=== PATIENT | male | born 1955 | race Caucasian/White ===

== ENCOUNTER 2017-07-17 09:42 | Emergency (ER) | payer OTHER, SELFPAY ==
[2017-07-17 09:43] VITALS: BP 156/88; PULSE 85; RESP 22; TEMP 36.6; O2SAT 99; BMI 28.8
[2017-07-17 09:51] VITALS: BP 141/83; PULSE 82; RESP 16; O2SAT 98
--- NOTE | 2017-07-17 10:17 | EKG12_ITS ---
Test Reason : SOB Blood Pressure : / mmHG Vent. Rate : 076 BPM Atrial Rate : 076 BPM P-R Int : 164 ms QRS Dur : 080 ms QT Int : 384 ms P-R-T Axes : 067 044 071 degrees QTc Int : 432 ms Normal sinus rhythm Septal infarct , age undetermined Abnormal ECG Confirmed by GRAYSON GONG ([id number]), news editor PETRA COLEY ([id number]) on 07/19/2017 2:59:33 PM Referred By: ALE Confirmed By:GRAYSON GONG
[2017-07-17] MEDS: Ipratropium/Albuterol Sulfate 3 ML AMPUL.NEB INHALATION (10:30)
[2017-07-17] MEDS: Albuterol 2.5 MG/3 ML VIAL.NEB. INHALATION ×2 (10:38→10:43)
[2017-07-17 10:39] VITALS: PULSE 81; RESP 14; O2SAT 96
[2017-07-17 10:48] LABS: Absolute Lymphocyte Count 2.23 X10^3/ul (0.83-4.51); Absolute Neutrophil Count 6.1 X10^3/uL (2.0-7.7); Basophil# 0.08 X10^3/uL; Basophil% 0.9 % (0-1); Eosinophil# 0.17 X10^3/uL; Eosinophils% 1.9 % (0-5); Hematocrit 49.4 % (40-54); Lymphocyte # 2.23 X10^3/ul (4.0); Lymphocyte % 24.3 % (19-41); Mean Corp Hgb Conc 34.4 g/gl (32-36); Mean Corpuscular Hgb 31.4 pg (27.0-32.0); Mean Corpuscular Volume 91.1 fL (80-94); Monocyte# 0.61 X10^3/uL; Monocyte% 6.7 % (0-10); Neutrophil # 6.06 X10^3/uL (2.7-7.7); Platelet Count 221 K/mm3 (150-450); RBC Distribution Width CV 13.7 % (11.6-14.6); RBC Distribution Width SD 45.1 fl (35.1-43.9); Red Blood Count 5.42 M/mm3 (4.6-6.2); White Blood Count 9.2 K/mm3 (4.4-11.0)
[2017-07-17 10:50] LABS: Anion Gap 4 (5-15); BUN 19 mg/dL (7-18); BUN/Creat Ratio 20.5 RATIO (10-20); Calcium,Total 8.8 mg/dL (8.5-10.1); Chloride 106 mmol/L (98-107); Creatinine, Serum 0.92 mg/dL (0.70-1.30); EST Glomerular Filtration Rate 89 mL/min (>60); Est Glom Filt Rate - Afr Amer 107 mL/min (>60); Estimated Creatinine Clearance 85.39 ml/min; Glucose 106 mg/dL (74-106); Potassium 4.3 mmol/L (3.5-5.1); Sodium Level 141 mmol/L (136-145)
[2017-07-17 10:51] LABS: POSITIVE COUNT NO; POSITIVE DIFFERENTIAL NO; POSITIVE MORPHOLOGY NO
--- NOTE | 2017-07-17 11:00 | RAD_ITS ---
STUDY: X-RAY CHEST REASON FOR EXAM: Male, 62 years old. Cough. TECHNIQUE: PA and lateral views of the chest. COMPARISON: Comparison is made with prior study dated June 07, 2017. FINDINGS: Hyperinflation. Decreased bronchovascular markings in the lower lobes suggestive of emphysematous changes. Stable mild increased markings in the left infrahilar region suggestive of possible scarring. Normal size heart. Normal mediastinum and babs. Normal visualized pulmonary arteries. Normal visualized aortic arch and descending thoracic aorta. Normal visualized thoracic spine. Normal visualized ribs, clavicles, and shoulders. There is no demonstrated abnormality of the visualized soft tissue structures of the upper abdomen. RAD/Chest PA and Lateral IMPRESSION: Hyperinflation. No acute abnormality is seen. Electronically Signed: Gualberto Barajas MD at 11:26 EST Tel [phone], Service support ,
[2017-07-17] MEDS: MethylPREDNISolone 125 MG/2 ML Vial IV (11:33)
--- NOTE | 2017-07-17 11:33 | ED.VISSUMM ---
- ER Visit Summary Date of Service: 07/17/17 Chief Complaint: Shortness of breath History of Present Illness: The patient is a 62 M who presents with shortness of breath for the past month. He was admitted for influenza and COPD. He was discharged on a steroid taper. He states he transiently seemed to improve but worsened again. He reports productive cough. He has had some congestion and rhinorrhea as well as chills and sweats. No documented fevers. He has had some diarrhea. No nausea or vomiting. Physical Examination: Afebrile vitals are stable Moist mucous membranes Heart regular rate and rhythm Patient has inspiratory and expiratory wheezing no retractions able to speak in full sentences no respiratory distress Abdomen soft Test Results: EKG shows normal sinus rhythm at a rate of 76. CBC BMP unremarkable. Chest x-ray shows hyperinflation but no acute process. Emergency Department Course and Treatment: IV Solu-Medrol was ordered however the patient refused to leave his IV and after blood draw. Therefore this was not given. Patient was given albuterol Atrovent aerosols. Symptoms consistent with COPD exacerbation. He was given prescriptions for a prednisone taper and doxycycline. He was advised to follow-up with his primary care physician. He was counseled on smoking cessation. Treatment Plan: [] Disposition: Discharge Impression: COPD exacerbation This note was generated with [employer] dictation software. It may contain incorrect words, spelling, and punctuation that were not noted in review of the chart prior to signing ED Disposition - Plan for ED Patient: Chief Complaint: Shortness of Breath Referrals: Angela Brown MD [Primary Care Provider] -
--- NOTE | 2017-07-17 11:36 | ED.DEP ---
ED Disposition - Plan for ED Patient: Chief Complaint: Shortness of Breath Instructions: ED COPD Flare Prescriptions: Prednisone 10 mg PO UD #33 tab Doxycycline Hyclate 1 tab PO BID #20 cap Referrals: Angela Brown MD [Primary Care Provider] -
[2017-07-17 11:49] VITALS: BP 157/72; PULSE 81; RESP 15; O2SAT 97
== END 2017-07-17 11:51 | disposition home or self-care (01) ==
LOC: ED 10:18
PROVIDERS: Emergency Provider Emergency Medicine; Family Provider Family Medicine; PCP Family Medicine
DX: J44.1 Chronic obstructive pulmonary disease with (acute) exacerbation (principal); Z72.0 Tobacco use
CPT/HCPCS: 71046; 80048; 85025; 93005; 94640; 99284

== ENCOUNTER 2017-08-06 07:18 | Observation (INO) | payer OTHER, SELFPAY ==
[2017-08-06] VITALS (14 sets, daily range): BP systolic 126–151; BP diastolic 60–77; PULSE 74–97; RESP 18–28; TEMP 36.7–37; O2SAT 94–98; BMI 28.8; BMI 28.5
--- NOTE | 2017-08-06 07:39 | RAD_ITS ---
STUDY: X-RAY CHEST REASON FOR EXAM: Male, 62 years old. One-month history of cough and shortness of breath. TECHNIQUE: Single AP portable view of the chest. COMPARISON: Comparison is made with prior study dated July 17, 2017. FINDINGS: EKG electrodes are seen. Hyperinflation. Stable mild increased markings in the left infrahilar region suggestive of a possible scarring. There is no demonstrated pleural abnormality. Normal size heart. Normal mediastinum and babs. There is prominence of the pulmonary hilar arteries without peripheral pulmonary vascular congestion, suggesting pulmonary hypertension. Normal visualized aortic arch and descending thoracic aorta. There are diffuse degenerative changes of the visualized thoracic spine. Normal visualized ribs, clavicles, and shoulders. There is no demonstrated abnormality of the visualized soft tissue structures of the upper abdomen. RAD/Chest 1 View (Portable) IMPRESSION: Hyperinflation. Stable examination. Electronically Signed: Gualberto Barajas MD at 8:18 EDT Tel [phone], Service support ,
--- NOTE | 2017-08-06 07:39 | EKG12_ITS ---
Test Reason : Blood Pressure : / mmHG Vent. Rate : 076 BPM Atrial Rate : 076 BPM P-R Int : 180 ms QRS Dur : 086 ms QT Int : 390 ms P-R-T Axes : 078 056 065 degrees QTc Int : 438 ms Normal sinus rhythm Normal ECG Confirmed by KAREN CARTER, GUNNER ([id number]), writer editor PETRA COLEY ([id number]) on 08/08/2017 3:29:59 PM Referred By: ELISEO Confirmed By:GUNNER JONES MD
[2017-08-06] MEDS: Ipratropium/Albuterol Sulfate 3 ML AMPUL.NEB INHALATION ×4 (07:51→19:27)
[2017-08-06] MEDS: Albuterol 2.5 MG/3 ML VIAL.NEB. INHALATION (07:52)
[2017-08-06 07:56] LABS: Absolute Lymphocyte Count 2.24 X10^3/ul (0.83-4.51); Absolute Neutrophil Count 5.1 X10^3/uL (2.0-7.7); Basophil# 0.03 X10^3/uL; Basophil% 0.4 % (0-1); Eosinophil# 0.28 X10^3/uL; Eosinophils% 3.4 % (0-5); Hematocrit 46.5 % (40-54); Lymphocyte # 2.24 X10^3/ul (4.0); Lymphocyte % 26.9 % (19-41); Mean Corp Hgb Conc 34.4 g/gl (32-36); Mean Corpuscular Hgb 31.7 pg (27.0-32.0); Mean Corpuscular Volume 92.1 fL (80-94); Mean Platelet Vol. 10.2 fl (6.2-12.0); Monocyte# 0.72 X10^3/uL; Monocyte% 8.6 % (0-10); Neutrophil # 5.06 X10^3/uL (2.7-7.7); Neutrophil % 60.6 % (47-70); Platelet Count 183 K/mm3 (150-450); RBC Distribution Width CV 13.7 % (11.6-14.6); RBC Distribution Width SD 45.1 fl (35.1-43.9); Red Blood Count 5.05 M/mm3 (4.6-6.2); White Blood Count 8.3 K/mm3 (4.4-11.0)
[2017-08-06 07:57] LABS: POSITIVE COUNT NO; POSITIVE DIFFERENTIAL NO; POSITIVE MORPHOLOGY NO
[2017-08-06 08:03] LABS: D-Dimer Quantitative (DVT/PE) < 0.27 FEU/ug/m (0.27-0.49)
[2017-08-06] MEDS: 0.9% Normal Saline 1,000 ML 150 ML IV (08:08)
[2017-08-06] MEDS: MethylPREDNISolone 125 MG/2 ML Vial IV (08:08)
[2017-08-06 08:10] LABS: Anion Gap 7 (5-15); BUN 19 mg/dL (7-18); Calcium,Total 8.2 mg/dL (8.5-10.1); Chloride 111 mmol/L (98-107); Creatinine, Serum 0.76 mg/dL (0.70-1.30); EST Glomerular Filtration Rate 111 mL/min (>60); Est Glom Filt Rate - Afr Amer 134 mL/min (>60); Estimated Creatinine Clearance 103.36 ml/min; Glucose 107 mg/dL (74-106); Potassium 4.2 mmol/L (3.5-5.1); Sodium Level 143 mmol/L (136-145)
--- NOTE | 2017-08-06 08:49 | ED.DCSUM_ITS ---
- ER Visit Summary Date of Service: 08/06/17 Chief Complaint: [Shortness of breath] History of Present Illness: The patient is a 62 M [presents to the emergency department with shortness of breath for over a month. Patient states that he was admitted little over a month ago for COPD exacerbation and diagnosis of influenza. Patient got better initially and then 2 weeks ago had a repeat visit to the emergency department and diagnosed with a COPD exacerbation once again. Patient was started on doxycycline, prednisone, and inhaler. Patient once again states that he felt better for about a week and then started having increased shortness of breath with activity. Patient continues to wheeze. He denies any chest pain. He denies any recent travel or surgery. Patient denies any fever.] Physical Examination: [HEENT-PERRLA, EOMI. Cranial nerves II through XII grossly intact. TMs clear. Mucous membranes moist. No adenopathy. Cardiovascular-regular rate and rhythm without murmur or ectopy Lungs-patient is tachypneic, decreased breath sounds bilaterally, expiratory wheezes bilaterally. No accessory muscle use or retractions. Abdomen-normoactive bowel sounds, soft, nontender, no rebound or rigidity, no peritoneal signs. Extremities-intact ?4, normal range of motion, normal pulses, atraumatic] Test Results: [EKG obtained on arrival shows sinus rhythm with a rate of 76 bpm. CBC with differential was normal. Chemistries were normal. Troponin was less than 0.02. EKG on arrival showed sinus rhythm with a ventricular rate of 76 bpm with no acute ST segment changes. Chest x-ray showed hyperinflation otherwise nothing acute.] Emergency Department Course and Treatment: [Patient received DuoNeb aerosol and albuterol aerosol. Patient continues to wheeze and feel dyspneic. Patient received Solu-Medrol 125 mill grams IV.] Treatment Plan: [Admit for further aerosol treatments and steroids.] Disposition: [Admit] Impression: [COPD exacerbation] This note was generated with [employer] dictation software. It may contain incorrect words, spelling, and punctuation that were not noted in review of the chart prior to signing ED Disposition - Plan for ED Patient: Chief Complaint: Shortness of Breath Referrals: Angela Brown MD [Primary Care Provider] -
--- NOTE | 2017-08-06 09:17 | ED.RN ---
Addendum entered by Jmai Chaves 08/06/17 09:22: This RN and Kimberlee, RN only nurses on unit at this time- assisting patient that needed x2 assist with positioning and care- could not see ER report since not at fax machine. Notified ER nurse that we are back in a room and would call when we were back at nurses' station- same completed. Original Note: called floor to see if report was recieved. was told I'll call you.
--- NOTE | 2017-08-06 10:36 | PCM.HP.STD ---
Problem List (1) COPD exacerbation Status: Acute (2) Influenza A Status: Resolved (3) Nicotine abuse Status: Chronic History of Present Illness Date of Admission: 08/06/17 Chief Complaint: Shortness of breath The patient is a 62 year old M with a past medical history of COPD and tobacco dependence who presented to the emergency department at [facility] on 08/06/2017 complaining of shortness of breath. He has an occasional cough. He denies fever, chills, nausea, vomiting, sore throat, myalgias or arthralgias. He continues to smoke 1 pack of cigarettes per day. He is using an albuterol rescue inhaler 3 times daily. 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 He used to smoke 4 packs of cigarettes per day. He has never had pulmonary function test or seen a termite control representative. Vital signs at presentation to the emergency room are temperature 98.1, pulse rate 82, blood pressure 144/77, respiratory rate 28 and he was 98% saturated on room air. He was given a DuoNeb aerosol and the respiratory rate was then 18 and he was 95% on room air. Blood work shows a normal white blood cell count of 8.3 with a normal differential. D-dimer was less than 0.27. BUN was mildly increased at 19 with a creatinine of 0.76. It was less than 0.02. Chest x-ray showed hyperinflation with no infiltrates. The ER physician recommended admission for acute exacerbation of COPD. He is being admitted to the hospital for observation with a diagnosis of COPD exacerbation. Past Medical History Past Medical History (Chronic Problems): Chronic Problems Nicotine abuse (Chronic) Allergies Sulfa (Sulfonamide Antibiotics) Allergy (Verified 08/06/17 07:22) Unknown Home Medications: Ambulatory Orders Medication Instructions Recorded Ascorbic Acid [Vitamin C] 1 tab PO DAILY 11/20/16 Naproxen Sodium [Aleve] 220 mg PO BID 11/20/16 Albuterol IH (ProAir) [Proair Hfa] 1 puff INHALATION Q6H PRN PRN #1 06/08/17 inhaler Surgical History: - - Right rotator cuff repair ?2 Psychiatric History: No pertinent psych hx Smoking Status: Heavy Smoker (>10/day) Tobacco Use: Cigarettes Alcohol: None - Used to be an alcoholic Drugs: None - *Family History Paternal History Items: Diabetes, - - He states his father had a viral cardiomyopathy Maternal History Items: Diabetes Review of Systems Constitutional: Denies: Chills, Fever, Weight Change Eyes: Denies: Blurred vision, Redness HEENT: Denies: Head Aches, Sinus Congestion, Sinus Drainage Cardiovascular: Denies: Chest Pain, Edema, Light Headedness, Palpitations Respiratory: Reports: Cough - He states smoking a cigarette makes him cough and then he can get the stuff up and so he rationalizes that the Albuterol does not help up but smoking a cigarette is therawputic, Shortness of breath upon exertion, Wheezing, - - He gets SOB when he lies down....has never had a sleep study. Denies: Hemoptysis Gastrointestinal: Denies: Abdominal Pain, Nausea, Vomiting Genitourinary: Denies: Dysuria Musculoskeletal: Denies: Joint Pain, Joint swelling, Muscle pain Skin: Denies: Jaundice, Rash, Wounds Neurological: Denies: Numbness, Tingling, Focal weakness Psychiatric: Denies: Anxiety, Depression, Homicidal Ideations, Suicidal Ideations Endocrine: Denies: Change in Body Habitus Hematologic/ Lymphatic: Denies: Hx of blood clot VTE Information - Inpt Only VTE Present on Admission: No VTE Mechan Device Prophylaxis: SCD's, Knee High YASMANI Hose VTE Pharm Prophylaxis ordered?: Yes - Physical Exam General: Alert, Oriented x3, Non-Cooperative - refused TEDS and Lovenox for DVT prophylaxis, - - When I entered his room he was eating and watching TV. He was not tachypneic, had no conversational dyspnea and malinda accessory muscle use. When I told him he was admitted for observation because he really did not meet any criteria for admission he began to breath fast and hard....until I asked him a question and once again he had no conversational dypnea. HEENT: Atraumatic, PERRLA, EOMI, Normocephalic Oral: Moist Mucosa, - - poor dental care Neck: Supple, No Nodes, Trachea Midline Lungs: No rhonchi, No rales, Diminished, Wheezes - end expiratory, - - fair air exchange with no conversational dyspnea and no tachypnea or accessory muscle use. He does have increased AP diameter of the chest Cardiovascular: Regular rate, Regular Rhythm, Normal S1, Normal S2, No murmurs, No Ectopic Activity, No Gallop Abdomen: Bowel Sounds Present, Soft, Non Tender, Non-Distended, - - ate 100% of his breakfast Extremities: No clubbing, No cyanosis, No edema Skin: No rashes, No breakdown Musculoskeletal: No Muscle Wasting Neurological: Cranial nerves II-XII grossly intact, Neuro grossly intact Psych/Mental Status: Agitated - he got agitated when I told him he would need to stop smoking because he has COPD.....he told me that he would have to start drinking again. He did stop for a period of 1 year with the assistance of Wellbutrin but he will not take this because it made him gain weight. He will not take a Nicoderm patch because he is too hairy. The gum did not work for him. Vital Signs Temp Pulse Resp BP Pulse Ox 98.1 F 74 20 H 137/72 H 94 08/06/17 09:51 08/06/17 09:51 08/06/17 09:51 08/06/17 09:51 08/06/17 09:51 Oxygen Delivery Method Room Air Weight: 193 lb 1.999 oz Body Mass Index (BMI) 28.5 Assessment/Plan Impressions 1. acute exacerbation COPD Around the clock aerosol treatments and Q 2H ALbuterol aerosols for wheezing/SOB High dose IV steroids x 4 doses and then Prednisone 40 mg. Mucinex Incentive spirometry PEP therapy DVT prophylaxis Ambulatory pulse ox prior to DC Consult Dr. Elliott from pulmonary - will need outpatient pulmonary function tests -and more than a rescue inhaler for treatment of suspected COPD with increased AP diameter of chest, hyperinflation and flattening of diaphragms on CXR 2. nicotine dependence 3. remote hx of Alcoholism Code Visit OBSV E&M: 80070 Initial observation care L3
--- NOTE | 2017-08-06 10:59 | NURSING ---
Addendum entered by Jami Chaves 08/07/17 09:58: Dr Joshi spoke with patient yesterday and then he agreed to take lovenox injection- same completed. Original Note: Pt refusing YASMANI hose and lovenox- Dr. Joshi notified.
[2017-08-06 11:56] LABS: Allen Test POS; Base Excess 3 mmol/L (-2 to +2); Bicarbonate 26.9 mmol/L (22-26); Blood Gas Specimen Type ART; O2 Delivery Device Room Air; PO2 71 mmHG (75-100); SITE R Radial; SO2 95 % (95-99); Time Given 1153; Total Carbon Dioxide 28 mmol/L; pCO2 36.5 mmHg (35-45); pH 7.48 (7.35-7.45)
--- NOTE | 2017-08-06 13:02 | PCM.CONS.GEN ---
Problem List (1) Suspected chronic obstructive pulmonary disease based on initial evaluation Status: Acute (2) Nicotine abuse Status: Chronic Reason for Consult Date of Consultation: 08/06/17 Reason for Consultation: dyspnea on exertion History of Present Illness: The patient is a 62 year old M with past medical history of alcoholism, tobacco abuse, and presumed COPD who presented to the ER on 08/06/17 with complaints of increased dyspnea on exertion and ineffectiveness of his albuterol inhaler. Patient does continue to smoke 1 pack per day and claims smoking a cigarette makes his shortness of breath improve. Has been using his albuterol inhaler 3 times a day. Patient was admitted 06/07/17 with presumed COPD exacerbation and influenza and discharged on a steroid taper, Tamiflu, and an albuterol inhaler. He then returned to the ER 07/17/17 and was again diagnosed with COPD exacerbation and sent home with a prednisone taper and 10 day course of doxycycline. He completed the antibiotics and taper and felt better until approximately 1 week later, at which time his symptoms returned. Chest x-ray on arrival showed hyperinflation, no acute abnormality. It demonstrated previously seen increased markings in the left and infrahilar region suggestive of possible scarring. There is also prominence of the pulmonary babs arteries without peripheral pulmonary vascular congestion, suggestive of pulmonary hypertension. Lab work revealed a normal CBC. BMP with a chloride of 111 and BUN of 19, creatinine 0.76. ABG was performed on room air and showed a pH of 7.48, PCO2 36.5 and PO2 71. Bicarb was 26.9. The patient did not require any oxygen supplementation and has remained on room air. He does complain of a coarse cough with occasional clear to yellow sputum production. He has some chest tightness and wheezing. He denies any chest pain, dizziness, or syncope. He denies any recent fevers or chills, nausea, vomiting, or diarrhea. Pulmonary medicine was consulted for continued follow-up on an outpatient basis. 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 He denies any exposure to TB or asbestos. He has lived in [place] his entire life and lives with his . His does report the patient snores and has periods of apnea. He has never been tested for any sleep disorders or had any pulmonary function testing. Patient states he felt relatively well prior to when he had influenza at the beginning of May. He had never previously been in the hospital for breathing issues. He has never been on any other inhalers other than the albuterol that was prescribed at that time. He reports he used to smoke 4 PPD for approximately 8 years, then decreased his smoking to a pack a day for the past 3 years. He did quit a couple of times in between. He has tried nicotine patches but after reading the box, states he was not able to use them anymore since he had too much hair on his body. He is not up-to-date on his colonoscopies. He denies any family or personal history of cancer. He used to drink very heavily but quit several years ago. He still has an occasional beer. Past Medical History Past Medical History (Chronic Problems): Chronic Problems Nicotine abuse (Chronic) Allergies Sulfa (Sulfonamide Antibiotics) Allergy (Verified 08/06/17 07:22) Unknown Home Medications: Ambulatory Orders Medication Instructions Recorded Ascorbic Acid [Vitamin C] 1 tab PO DAILY 11/20/16 Naproxen Sodium [Aleve] 220 mg PO BID 11/20/16 Albuterol IH (ProAir) [Proair Hfa] 1 puff INHALATION Q6H PRN PRN #1 06/08/17 inhaler Surgical History: - - Right rotator cuff repair ?2 Psychiatric History: No pertinent psych hx Lives: Spouse/ Significant Other Smoking Status: Heavy Smoker (>10/day) Tobacco Use: Cigarettes Alcohol: Occasional Drugs: None - *Family History Paternal History Items: Diabetes, - - He states his father had a viral cardiomyopathy Maternal History Items: Diabetes Review of Systems Constitutional: Denies: Anorexia, Chills, Fever, Night Sweats, Malaise, Weakness, Weight Change, Fatigue Eyes: Denies: Blurred vision, Vision Change HEENT: Denies: Difficulty Swallowing, Nasal bleeding, Nasal Congestion, Post Nasal Drip, Sore Throat Cardiovascular: Reports: Chest Tightness. Denies: Chest Pain, Edema, Light Headedness, Orthopnea, Palpitations, Paroxysmal Noc. Dyspnea, Syncope Respiratory: Reports: Cough, Shortness of breath at rest, Shortness of breath upon exertion, Sputum production, Wheezing. Denies: Hemoptysis Gastrointestinal: Denies: Abdominal Pain, Constipation, Diarrhea, Dyspepsia, Hematemesis, Hematochezia, Nausea, Melena, Vomiting Genitourinary: Reports: Nocturia. Denies: Dysuria, Frequency, Hematuria, Retention Musculoskeletal: Reports: Shoulder Pain - right, chronic. Denies: Leg Pain Skin: Denies: Dryness, Rash, Wounds Neurological: Denies: Balance problems, Confusion, Difficulty swallowing, Focal weakness, Headaches, Numbness, Tingling, Tremor, Seizures Psychiatric: Denies: Anxiety, Depression, Suicidal Ideations Endocrine: Denies: Change in Body Habitus, Polydipsia, Polyuria Hematologic/ Lymphatic: Reports: Easy Bruising. Denies: Adenopathy, Anemia, Easy Bleeding, Hx of blood clot Patient Problems: Active and Suspected Problems Suspected chronic obstructive pulmonary disease based on initial evaluation (Acute) Subjective: The patient was seen and examined. His is at the bedside. He denies any current shortness of breath. He does have a productive cough of clear to yellow sputum, no hemoptysis. Complains of chronic right shoulder pain. Patient is maintaining saturations on room air. Objective: Clinical Impression(s) from Imaging Studies Chest X-Ray 08/06/17 07:39 IMPRESSION: Hyperinflation. Stable examination. Electronically Signed: Gualberto Barajas MD at 8:18 EDT Tel [phone], Service support , - Physical Exam General: Alert, Oriented x3, Cooperative, No apparent distress, Well developed, Well nourished, - - No conversational dyspnea HEENT: Atraumatic, Normocephalic Oral: Moist Mucosa, No Gingival or Mucosal Lesions/ Ulcerations Neck: Supple, No JVD, No Nodes, Trachea Midline Lungs: No rales, Diminished, - - Rhonchi and expiratory wheeze throughout. No dullness to percussion, no accessory muscle use, no tachypnea Cardiovascular: Regular rate, Regular Rhythm, Normal S1, Normal S2, No murmurs, PMI Normal, No rub noted, No Gallop Abdomen: Bowel Sounds Present, Soft, Non Tender, Non-Distended Extremities: No clubbing, No cyanosis, No edema, Capillary Refill Less than 3 Seconds Skin: No rashes, No breakdown Musculoskeletal: No Tenderness to Palpation of Joints or Extremities Lymphatic: No Cervical, Supraclavicular, or Inguinal Adenopathy Neurological: Cranial nerves II-XII grossly intact, Neuro grossly intact, Motor Exam 5/5 strength throughout Psych/Mental Status: Alert and oriented to time, place, person, mood and affect Vital Signs Temp Pulse Resp BP Pulse Ox 98.1 F 76 21 H 137/72 H 95 08/06/17 09:51 08/06/17 11:31 08/06/17 11:31 08/06/17 09:51 08/06/17 11:31 Oxygen Delivery Method Room Air Weight: 193 lb 1.999 oz Body Mass Index (BMI) 28.5 Intake and Output for Last 24 Hours 08/04/17 08/05/17 08/06/17 22:59 23:59 23:59 Intake Total 1101 / 1101 Balance 1101 / 1101 Laboratory Tests Past 24 Hrs 08/06/17 11:50 Specimen Type ART Sample Site R Radial pH 7.48 H Bicarbonate Actual 26.9 H POC Total CO2 28 Base Excess 3 H O2 Saturation 95 ABG pCO2 36.5 ABG pO2 71 L Patricio Test POS O2 Delivery Device Room Air Blood Gas Notified Whom HOSP Blood Gas Notified Time 1153 Assessment/Plan Active and Suspected Problems Suspected chronic obstructive pulmonary disease based on initial evaluation (Acute) RECOMMENDATIONS 1. Wean oxygen supplementation to keep saturations greater than 89% 2. Encourage incentive spirometer and Acapella 3. Increase activity as tolerated 4. Continue aerosols 5. Continue IV steroids ?4 doses, transition to oral after with taper at discharge 6. Send sputum for culture 7. Ambulatory pulse ox prior to discharge 8. Patient can follow-up in the pulmonary clinic in 2 weeks after discharge at which time pulmonary testing can be arranged IMPRESSIONS 1. Presumed COPD exacerbation Recent influenza A in May, treated with prednisone taper, Tamiflu, albuterol inhaler. Has been using albuterol 3 times a day since. Was in the emergency room on July 17 with increased shortness of breath. Discharged with prednisone taper and doxycycline ?10 days. He felt better and then after 1 week became more short of breath again. Patient has been on room air and saturating greater than 90%. His ABG showed mild hypoxia with a PO2 of 71. PH 7.48 and bicarbonate 26.9. pCO2 was normal at 36.5. Suspect patient has COPD that is not adequately managed on current regimen. He has a significant smoking history. His lungs are very rhonchorous. He has some sputum production, sample was sent for culture. Continue steroids for now, no indication for the need of antibiotics. Encourage incentive spirometer/Acapella and increase activity as tolerated. Pulmonary function tests would be beneficial for quantification and clarification of his suspected lung disease. Patient can be offered follow-up appointment in the pulmonary clinic within 2 weeks of discharge with SENIOR INFORMATION SECURITY ANALYST. Patient should also have an ambulatory pulse ox prior to discharge. 2. Suspected sleep apnea Patient's reports loud snoring, witnessed apnea. Patient denies any hypertension. Does feel tired during the day at times, nothing significant. Suspect he does have sleep apnea, explained sleep study to patient and his . If patient would like to proceed with testing, this can be arranged as an outpatient in the pulmonary clinic or by his PCP. 3. Tobacco abuse Patient has [id number] history of smoking. He was advised to quit. He is currently wearing a nicotine patch. States he was unable to wear the patch as an outpatient secondary to his hair, was refusing to shave. Again, patient strongly encouraged to quit smoking. This note was generated with [employer] dictation software. It may contain incorrect words, spelling, and punctuation that were not noted in checking the note before signing.
--- NOTE | 2017-08-06 13:12 | CON.PCM_ITS ---
Problem List (1) Suspected chronic obstructive pulmonary disease based on initial evaluation Status: Acute (2) Nicotine abuse Status: Chronic Reason for Consult Date of Consultation: 08/06/17 Reason for Consultation: dyspnea on exertion History of Present Illness: The patient is a 62 year old M with past medical history of alcoholism, tobacco abuse, and presumed COPD who presented to the ER on 08/06/17 with complaints of increased dyspnea on exertion and ineffectiveness of his albuterol inhaler. Patient does continue to smoke 1 pack per day and claims smoking a cigarette makes his shortness of breath improve. Has been using his albuterol inhaler 3 times a day. Patient was admitted 06/07/17 with presumed COPD exacerbation and influenza and discharged on a steroid taper, Tamiflu, and an albuterol inhaler. He then returned to the ER 07/17/17 and was again diagnosed with COPD exacerbation and sent home with a prednisone taper and 10 day course of doxycycline. He completed the antibiotics and taper and felt better until approximately 1 week later, at which time his symptoms returned. Chest x-ray on arrival showed hyperinflation, no acute abnormality. It demonstrated previously seen increased markings in the left and infrahilar region suggestive of possible scarring. There is also prominence of the pulmonary babs arteries without peripheral pulmonary vascular congestion, suggestive of pulmonary hypertension. Lab work revealed a normal CBC. BMP with a chloride of 111 and BUN of 19, creatinine 0.76. ABG was performed on room air and showed a pH of 7.48, PCO2 36.5 and PO2 71. Bicarb was 26.9. The patient did not require any oxygen supplementation and has remained on room air. He does complain of a coarse cough with occasional clear to yellow sputum production. He has some chest tightness and wheezing. He denies any chest pain , dizziness, or syncope. He denies any recent fevers or chills, nausea, vomiting, or diarrhea. Pulmonary medicine was consulted for continued follow- up on an outpatient basis. 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 He denies any exposure to TB or asbestos. He has lived in [place] his entire life and lives with his . His does report the patient snores and has periods of apnea. He has never been tested for any sleep disorders or had any pulmonary function testing. Patient states he felt relatively well prior to when he had influenza at the beginning of May. He had never previously been in the hospital for breathing issues. He has never been on any other inhalers other than the albuterol that was prescribed at that time. He reports he used to smoke 4 PPD for approximately 8 years, then decreased his smoking to a pack a day for the past 3 years. He did quit a couple of times in between. He has tried nicotine patches but after reading the box, states he was not able to use them anymore since he had too much hair on his body. He is not up-to-date on his colonoscopies. He denies any family or personal history of cancer. He used to drink very heavily but quit several years ago. He still has an occasional beer. Past Medical History Past Medical History (Chronic Problems): Chronic Problems Nicotine abuse (Chronic) Allergies Sulfa (Sulfonamide Antibiotics) Allergy (Verified 08/06/17 07:22) Unknown Home Medications: Ambulatory Orders Medication Instructions Recorded Ascorbic Acid [Vitamin C] 1 tab PO DAILY 11/20/16 Naproxen Sodium [Aleve] 220 mg PO BID 11/20/16 Albuterol IH (ProAir) [Proair Hfa] 1 puff INHALATION Q6H PRN PRN #1 06/08/17 inhaler Surgical History: - - Right rotator cuff repair ?2 Psychiatric History: No pertinent psych hx Lives: Spouse/ Significant Other Smoking Status: Heavy Smoker (>10/day) Tobacco Use: Cigarettes Alcohol: Occasional Drugs: None - *Family History Paternal History Items: Diabetes, - - He states his father had a viral cardiomyopathy Maternal History Items: Diabetes Review of Systems Constitutional: Denies: Anorexia, Chills, Fever, Night Sweats, Malaise, Weakness , Weight Change, Fatigue Eyes: Denies: Blurred vision, Vision Change HEENT: Denies: Difficulty Swallowing, Nasal bleeding, Nasal Congestion, Post Nasal Drip, Sore Throat Cardiovascular: Reports: Chest Tightness. Denies: Chest Pain, Edema, Light Headedness, Orthopnea, Palpitations, Paroxysmal Noc. Dyspnea, Syncope Respiratory: Reports: Cough, Shortness of breath at rest, Shortness of breath upon exertion, Sputum production, Wheezing. Denies: Hemoptysis Gastrointestinal: Denies: Abdominal Pain, Constipation, Diarrhea, Dyspepsia, Hematemesis, Hematochezia, Nausea, Melena, Vomiting Genitourinary: Reports: Nocturia. Denies: Dysuria, Frequency, Hematuria, Retention Musculoskeletal: Reports: Shoulder Pain - right, chronic. Denies: Leg Pain Skin: Denies: Dryness, Rash, Wounds Neurological: Denies: Balance problems, Confusion, Difficulty swallowing, Focal weakness, Headaches, Numbness, Tingling, Tremor, Seizures Psychiatric: Denies: Anxiety, Depression, Suicidal Ideations Endocrine: Denies: Change in Body Habitus, Polydipsia, Polyuria Hematologic/ Lymphatic: Reports: Easy Bruising. Denies: Adenopathy, Anemia, Easy Bleeding, Hx of blood clot Patient Problems: Active and Suspected Problems Suspected chronic obstructive pulmonary disease based on initial evaluation ( Acute) Subjective: The patient was seen and examined. His is at the bedside. He denies any current shortness of breath. He does have a productive cough of clear to yellow sputum, no hemoptysis. Complains of chronic right shoulder pain. Patient is maintaining saturations on room air. Objective: Clinical Impression(s) from Imaging Studies Chest X-Ray 08/06/17 07:39 IMPRESSION: Hyperinflation. Stable examination. Electronically Signed: Gualberto Barajas MD at 8:18 EDT Tel [phone], Service support , - Physical Exam General: Alert, Oriented x3, Cooperative, No apparent distress, Well developed, Well nourished, - - No conversational dyspnea HEENT: Atraumatic, Normocephalic Oral: Moist Mucosa, No Gingival or Mucosal Lesions/ Ulcerations Neck: Supple, No JVD, No Nodes, Trachea Midline Lungs: No rales, Diminished, - - Rhonchi and expiratory wheeze throughout. No dullness to percussion, no accessory muscle use, no tachypnea Cardiovascular: Regular rate, Regular Rhythm, Normal S1, Normal S2, No murmurs, PMI Normal, No rub noted, No Gallop Abdomen: Bowel Sounds Present, Soft, Non Tender, Non-Distended Extremities: No clubbing, No cyanosis, No edema, Capillary Refill Less than 3 Seconds Skin: No rashes, No breakdown Musculoskeletal: No Tenderness to Palpation of Joints or Extremities Lymphatic: No Cervical, Supraclavicular, or Inguinal Adenopathy Neurological: Cranial nerves II-XII grossly intact, Neuro grossly intact, Motor Exam 5/5 strength throughout Psych/Mental Status: Alert and oriented to time, place, person, mood and affect Vital Signs Temp Pulse Resp BP Pulse Ox 98.1 F 76 21 H 137/72 H 95 08/06/17 09:51 08/06/17 11:31 08/06/17 11:31 08/06/17 09:51 08/06/17 11:31 Oxygen Delivery Method Room Air Weight: 193 lb 1.999 oz Body Mass Index (BMI) 28.5 Intake and Output for Last 24 Hours 08/04/17 08/05/17 08/06/17 22:59 23:59 23:59 Intake Total 1101 / 1101 Balance 1101 / 1101 Laboratory Tests Past 24 Hrs 08/06/17 11:50 Specimen Type ART Sample Site R Radial pH 7.48 H Bicarbonate Actual 26.9 H POC Total CO2 28 Base Excess 3 H O2 Saturation 95 ABG pCO2 36.5 ABG pO2 71 L Patricio Test POS O2 Delivery Device Room Air Blood Gas Notified Whom HOSP Blood Gas Notified Time 1153 Assessment/Plan Active and Suspected Problems Suspected chronic obstructive pulmonary disease based on initial evaluation ( Acute) RECOMMENDATIONS 1. Wean oxygen supplementation to keep saturations greater than 89% 2. Encourage incentive spirometer and Acapella 3. Increase activity as tolerated 4. Continue aerosols 5. Continue IV steroids ?4 doses, transition to oral after with taper at discharge 6. Send sputum for culture 7. Ambulatory pulse ox prior to discharge 8. Patient can follow-up in the pulmonary clinic in 2 weeks after discharge at which time pulmonary testing can be arranged IMPRESSIONS 1. Presumed COPD exacerbation Recent influenza A in May, treated with prednisone taper, Tamiflu, albuterol inhaler. Has been using albuterol 3 times a day since. Was in the emergency room on July 17 with increased shortness of breath. Discharged with prednisone taper and doxycycline ?10 days. He felt better and then after 1 week became more short of breath again. Patient has been on room air and saturating greater than 90%. His ABG showed mild hypoxia with a PO2 of 71. PH 7.48 and bicarbonate 26.9. pCO2 was normal at 36.5. Suspect patient has COPD that is not adequately managed on current regimen. He has a significant smoking history. His lungs are very rhonchorous. He has some sputum production , sample was sent for culture. Continue steroids for now, no indication for the need of antibiotics. Encourage incentive spirometer/Acapella and increase activity as tolerated. Pulmonary function tests would be beneficial for quantification and clarification of his suspected lung disease. Patient can be offered follow-up appointment in the pulmonary clinic within 2 weeks of discharge with FURNACE ATTENDANT. Patient should also have an ambulatory pulse ox prior to discharge. 2. Suspected sleep apnea Patient's reports loud snoring, witnessed apnea. Patient denies any hypertension. Does feel tired during the day at times, nothing significant. Suspect he does have sleep apnea, explained sleep study to patient and his . If patient would like to proceed with testing, this can be arranged as an outpatient in the pulmonary clinic or by his PCP. 3. Tobacco abuse Patient has [id number] history of smoking. He was advised to quit. He is currently wearing a nicotine patch. States he was unable to wear the patch as an outpatient secondary to his hair, was refusing to shave. Again, patient strongly encouraged to quit smoking. This note was generated with [employer] dictation software. It may contain incorrect words, spelling, and punctuation that were not noted in checking the note before signing.
[2017-08-06] MEDS: 0.9% NaCl Peripheral Flush Adult/Peds IV (15:09)
[2017-08-06] MEDS: Enoxaparin 40 MG/0.4 ML Syringe SC (15:09)
[2017-08-06] MEDS: Naproxen 250 MG Tablet PO (22:11)
[2017-08-07] VITALS (11 sets, daily range): BP systolic 128–164; BP diastolic 66–75; PULSE 92–110; RESP 16–20; TEMP 36.6–36.8; O2SAT 94–99
[2017-08-07] MEDS: Ipratropium/Albuterol Sulfate 3 ML AMPUL.NEB INHALATION ×4 (00:16→11:21)
[2017-08-07] MEDS: 0.9% NaCl Peripheral Flush Adult/Peds IV ×2 (05:41→12:59)
--- NOTE | 2017-08-07 08:30 | PCM.PROGNOTE ---
Patient Problems: Active and Suspected Problems Suspected chronic obstructive pulmonary disease based on initial evaluation (Acute) Subjective: The patient was seen and examined. Reports his breathing is overall better. Ambulatory pulse ox this morning showed desaturations down to 94%, no qualification for oxygen supplementation at home. Still has a cough with intermittently productive, clear sputum. Intermittent dyspnea on exertion, improved. Chest tightness has improved as well. Objective: Recent lab work and culture data reviewed. Sputum cultures pending. - Physical Exam General: Alert, Oriented x3, Cooperative, No apparent distress, Well developed, Well nourished HEENT: Atraumatic, Normocephalic Oral: Moist Mucosa, No Gingival or Mucosal Lesions/ Ulcerations Neck: Supple, No JVD, No Nodes, Trachea Midline Lungs: Diminished, - - Expiratory wheeze, no rhonchi or rales Cardiovascular: Regular rate, Regular Rhythm, Normal S1, Normal S2, No murmurs, No rub noted, No Gallop Abdomen: Bowel Sounds Present, Soft, Non Tender, Non-Distended Extremities: No clubbing, No cyanosis, No edema Skin: No rashes, No breakdown Musculoskeletal: Tenderness - R shoulder, chronic Lymphatic: No Cervical, Supraclavicular, or Inguinal Adenopathy Neurological: Cranial nerves II-XII grossly intact, Neuro grossly intact, Motor Exam 5/5 strength throughout Psych/Mental Status: Alert and oriented to time, place, person, mood and affect Vital Signs Temp Pulse Resp BP Pulse Ox 98.2 F 92 20 H 128/71 H 94 08/07/17 04:15 08/07/17 07:23 08/07/17 07:23 08/07/17 04:15 08/07/17 08:22 Oxygen Flow Rate (L/min) [ 0 AMBULATING on Room Air] Oxygen Flow Rate (L/min) [At 0 REST on Room Air] Oxygen Delivery Method Room Air Weight: 193 lb 1.999 oz Body Mass Index (BMI) 28.5 Intake and Output for Last 24 Hours 08/05/17 08/06/17 08/07/17 23:59 23:59 23:59 Intake Total 1701 / 1701 1248 / 1248 Balance 1701 / 1701 1248 / 1248 Laboratory Tests Past 24 Hrs 08/06/17 11:50 Specimen Type ART Sample Site R Radial pH 7.48 H Bicarbonate Actual 26.9 H POC Total CO2 28 Base Excess 3 H O2 Saturation 95 ABG pCO2 36.5 ABG pO2 71 L Patricio Test POS O2 Delivery Device Room Air Blood Gas Notified Whom [facility] Blood Gas Notified Time 1153 Assessment/Plan Active and Suspected Problems Suspected chronic obstructive pulmonary disease based on initial evaluation (Acute) RECOMMENDATIONS 1. Wean oxygen supplementation to keep saturations greater than 89% 2. Encourage incentive spirometer and Acapella 3. Increase activity as tolerated 4. Continue aerosols 5. Transition to oral steroids with RX for 40mg x5 days on discharge 6. Await sputum culture 7. Patient can follow-up in the pulmonary clinic in 2 weeks after discharge at which time pulmonary testing can be arranged (PFTs, PSG, 6-min walk) 8. Okay to discharge from pulmonary standpoint IMPRESSIONS 1. Presumed COPD Patient has been on room air and saturating greater than 90%. His ABG showed mild hypoxia with a PO2 of 71. PH 7.48 and bicarbonate 26.9. pCO2 was normal at 36.5. Suspect patient has COPD that is not adequately managed on current regimen of albuterol MDI TID. He has a significant smoking history. Pulmonary function tests would be beneficial for quantification and clarification of his suspected lung disease. Patient can be offered follow-up appointment in the pulmonary clinic within 2 weeks of discharge with CLINICAL PROGRAM CONSULTANT. Sputum pending. Encourage incentive spirometer/Acapella and increase activity as tolerated. Transition to oral steroids with RX for 40 mg x5 days at discharge. Ambulatory pulse oximetry did not indicate the need for supplemental oxygen on discharge. Patient would likely benefit from the addition of Anoro at discharge, will check with for insurance coverage. 2. Suspected sleep apnea Patient's reports loud snoring, witnessed apnea. Patient denies any hypertension. Does feel tired during the day at times, nothing significant. Suspect he does have sleep apnea, explained sleep study to patient and his . If patient would like to proceed with testing, this can be arranged as an outpatient in the pulmonary clinic or by his PCP. 3. Tobacco abuse Patient has [id number] history of smoking. He was advised to quit. He is currently wearing a nicotine patch. States he was unable to wear the patch as an outpatient secondary to his hair, was refusing to shave. Again, patient strongly encouraged to quit smoking. This note was generated with [employer] software. It may contain incorrect words, spelling, and punctuation that were not noted in checking the note before signing.
--- NOTE | 2017-08-07 08:36 | PN_ITS ---
Patient Problems: Active and Suspected Problems Suspected chronic obstructive pulmonary disease based on initial evaluation ( Acute) Subjective: The patient was seen and examined. Reports his breathing is overall better. Ambulatory pulse ox this morning showed desaturations down to 94%, no qualification for oxygen supplementation at home. Still has a cough with intermittently productive, clear sputum. Intermittent dyspnea on exertion, improved. Chest tightness has improved as well. Objective: Recent lab work and culture data reviewed. Sputum cultures pending. - Physical Exam General: Alert, Oriented x3, Cooperative, No apparent distress, Well developed, Well nourished HEENT: Atraumatic, Normocephalic Oral: Moist Mucosa, No Gingival or Mucosal Lesions/ Ulcerations Neck: Supple, No JVD, No Nodes, Trachea Midline Lungs: Diminished, - - Expiratory wheeze, no rhonchi or rales Cardiovascular: Regular rate, Regular Rhythm, Normal S1, Normal S2, No murmurs, No rub noted, No Gallop Abdomen: Bowel Sounds Present, Soft, Non Tender, Non-Distended Extremities: No clubbing, No cyanosis, No edema Skin: No rashes, No breakdown Musculoskeletal: Tenderness - R shoulder, chronic Lymphatic: No Cervical, Supraclavicular, or Inguinal Adenopathy Neurological: Cranial nerves II-XII grossly intact, Neuro grossly intact, Motor Exam 5/5 strength throughout Psych/Mental Status: Alert and oriented to time, place, person, mood and affect Vital Signs Temp Pulse Resp BP Pulse Ox 98.2 F 92 20 H 128/71 H 94 08/07/17 04:15 08/07/17 07:23 08/07/17 07:23 08/07/17 04:15 08/07/17 08:22 Oxygen Flow Rate (L/min) [ 0 AMBULATING on Room Air] Oxygen Flow Rate (L/min) [At 0 REST on Room Air] Oxygen Delivery Method Room Air Weight: 193 lb 1.999 oz Body Mass Index (BMI) 28.5 Intake and Output for Last 24 Hours 08/05/17 08/06/17 08/07/17 23:59 23:59 23:59 Intake Total 1701 / 1701 1248 / 1248 Balance 1701 / 1701 1248 / 1248 Laboratory Tests Past 24 Hrs 08/06/17 11:50 Specimen Type ART Sample Site R Radial pH 7.48 H Bicarbonate Actual 26.9 H POC Total CO2 28 Base Excess 3 H O2 Saturation 95 ABG pCO2 36.5 ABG pO2 71 L Patricio Test POS O2 Delivery Device Room Air Blood Gas Notified Whom [facility] Blood Gas Notified Time 1153 Assessment/Plan Active and Suspected Problems Suspected chronic obstructive pulmonary disease based on initial evaluation ( Acute) RECOMMENDATIONS 1. Wean oxygen supplementation to keep saturations greater than 89% 2. Encourage incentive spirometer and Acapella 3. Increase activity as tolerated 4. Continue aerosols 5. Transition to oral steroids with RX for 40mg x5 days on discharge 6. Await sputum culture 7. Patient can follow-up in the pulmonary clinic in 2 weeks after discharge at which time pulmonary testing can be arranged (PFTs, PSG, 6-min walk) 8. Okay to discharge from pulmonary standpoint IMPRESSIONS 1. Presumed COPD Patient has been on room air and saturating greater than 90%. His ABG showed mild hypoxia with a PO2 of 71. PH 7.48 and bicarbonate 26.9. pCO2 was normal at 36.5. Suspect patient has COPD that is not adequately managed on current regimen of albuterol MDI TID. He has a significant smoking history. Pulmonary function tests would be beneficial for quantification and clarification of his suspected lung disease. Patient can be offered follow-up appointment in the pulmonary clinic within 2 weeks of discharge with FRAME STRIPPER. Sputum pending. Encourage incentive spirometer/Acapella and increase activity as tolerated. Transition to oral steroids with RX for 40 mg x5 days at discharge. Ambulatory pulse oximetry did not indicate the need for supplemental oxygen on discharge. Patient would likely benefit from the addition of Anoro at discharge, will check with for insurance coverage. 2. Suspected sleep apnea Patient's reports loud snoring, witnessed apnea. Patient denies any hypertension. Does feel tired during the day at times, nothing significant. Suspect he does have sleep apnea, explained sleep study to patient and his . If patient would like to proceed with testing, this can be arranged as an outpatient in the pulmonary clinic or by his PCP. 3. Tobacco abuse Patient has [id number] history of smoking. He was advised to quit. He is currently wearing a nicotine patch. States he was unable to wear the patch as an outpatient secondary to his hair, was refusing to shave. Again, patient strongly encouraged to quit smoking. This note was generated with [employer] software. It may contain incorrect words, spelling, and punctuation that were not noted in checking the note before signing.
--- NOTE | 2017-08-07 09:27 | PCA ---
Scheduled appointment for this patient per request of dr. nick Bautista. She requested i make it for him before he leaves the hospital and schedule it as early as possible in the morning. I made it for August 29, 2017 at 7:45am.
[2017-08-07] MEDS: Naproxen 250 MG Tablet PO (10:00)
[2017-08-07] MEDS: Enoxaparin 40 MG/0.4 ML Syringe SC (10:07)
--- NOTE | 2017-08-07 10:42 | NURSING ---
Patient has been up on unit independently walking hallways with no distress noted. Patient completed walking spo2 trial with this RN- walked at a rapid pace around loop twice- again with no distress noted and spo2 remained above 95% the entire time. patient states that he has no issue while he is doing activity- but states that it gets worse when he stops. This RN rechecked spo2 following walking trial, while sitting in bed- at rest, spo2=99% on RA
--- NOTE | 2017-08-07 10:45 | PCM.DC ---
- Discharge Diagnoses Current Active Problems: Current Active and Chronic Problems Suspected chronic obstructive pulmonary disease based on initial evaluation (Acute) You will use the following diet at home:: No restrictions Your food should be the consistency of: Regular Your liquids should be the consistency of: Regular/Thin Discharge Activity: - - Avoid exposure to any strong smells such as bleach, cleaning products, strong colognes or perfumes, paint fumes and smoke of any kind. Avoid sudden exposure to cold air because this can cause bronchospasm. You may want to cover your mouth when you go outside in the winter. Avoid exposure to anyone who is sick with a cough or sore throat. Call your doctor if you observe: Fever of 101 or Higher, Chest pain, - - worsening shortness of breath, rash, diarrhea, more than 3 BM's a day, Instructions: What is COPD?, Chronic Lung Disease: Preventing Lung Infections, Pulmonary Function Tests, Caring for Your Inhaler, Tips for Quitting Smoking (Cardiovascular), Why Do You Smoke?, Planning to Quit Smoking, Getting Support for Quitting Smoking Additional Instructions: 1. If you continue to smoke the chronic lung disease is going to continue to get worse. The Albuterol inhaler is not sufficient treatment for a patient with Chronic lung disease. You have been started on Anoro which is a long acting bronchodilator that you will use once daily as directed. you may continue to use the Albuterol inhaler 2 puffs every 4 hours as needed for Shortness of breath or wheezing. 2. We suspect you have COPD based on the chest Xray and your Physical exam and symptoms. We can not prove this unless you have pulmonary functioning testing. You should follow up with Dr. Elliott in 2 weeks to arrange for testing. 3. Since you have Wellbutrin at home and it has helped you stop smoking in the past I suggest you take it. Well butrin is generally associated with weight loss. The weight gain associated with smoking cessation is generally due to substituting food/sugar for cigarettes. 4. You do not have pneumonia. You have bronchitis and the sputum is growing Strep. I have given you a prescription for an Antibiotic called Augemntin. you will take this twice a day until gone. Pending Tests on Discharge: final sputum results Allergies/Adverse Reactions: Allergies Sulfa (Sulfonamide Antibiotics) Allergy (Verified 08/06/17 07:22) Unknown Medications to take at Discharge Ascorbic Acid [Vitamin C] 1 tab PO DAILY 11/20/16 Naproxen Sodium [Aleve] 220 mg PO BID 11/20/16 Albuterol IH (ProAir) [Proair Hfa] 1 puff INHALATION Q6H PRN PRN #1 inhaler 06/08/17 Amoxicillin/Potassium Clav [Augmentin 875-125 Tablet] 1 ea PO BID #14 tab 08/07/17 Prednisone 40 mg PO DAILY #10 tab 08/07/17 Umeclidinium Brm/Vilanterol Tr [Anoro Ellipta 62.5-25 Mcg INH] 1 ea IH DAILY #1 disk.w.dev 08/07/17 The following prescriptions were given: Prednisone 40 mg PO DAILY #10 tab Umeclidinium Brm/Vilanterol Tr [Anoro Ellipta 62.5-25 Mcg INH] 1 ea IH DAILY #1 disk.w.dev Amoxicillin/Potassium Clav [Augmentin 875-125 Tablet] 1 ea PO BID #14 tab Primary Care Physician: Angela Brown MD [Primary Care Provider] - Please follow up with your Primary Care Physician in: 3-5 days Please Follow Up With: Pulmonary Disease [place] When: August 29 2017 with Shilpi ORTIZ Proposed Discharge Date: 08/07/17
--- NOTE | 2017-08-07 10:59 | DCINST_ITS ---
- Discharge Diagnoses Current Active Problems: Current Active and Chronic Problems Suspected chronic obstructive pulmonary disease based on initial evaluation ( Acute) You will use the following diet at home:: No restrictions Your food should be the consistency of: Regular Your liquids should be the consistency of: Regular/Thin Discharge Activity: - - Avoid exposure to any strong smells such as bleach, cleaning products, strong colognes or perfumes, paint fumes and smoke of any kind. Avoid sudden exposure to cold air because this can cause bronchospasm. You may want to cover your mouth when you go outside in the winter. Avoid exposure to anyone who is sick with a cough or sore throat. Call your doctor if you observe: Fever of 101 or Higher, Chest pain, - - worsening shortness of breath, rash, diarrhea, more than 3 BM's a day, Instructions: What is COPD?, Chronic Lung Disease: Preventing Lung Infections, Pulmonary Function Tests, Caring for Your Inhaler, Tips for Quitting Smoking ( Cardiovascular), Why Do You Smoke?, Planning to Quit Smoking, Getting Support for Quitting Smoking Additional Instructions: 1. If you continue to smoke the chronic lung disease is going to continue to get worse. The Albuterol inhaler is not sufficient treatment for a patient with Chronic lung disease. You have been started on Anoro which is a long acting bronchodilator that you will use once daily as directed. you may continue to use the Albuterol inhaler 2 puffs every 4 hours as needed for Shortness of breath or wheezing. 2. We suspect you have COPD based on the chest Xray and your Physical exam and symptoms. We can not prove this unless you have pulmonary functioning testing. You should follow up with Dr. Elliott in 2 weeks to arrange for testing. 3. Since you have Wellbutrin at home and it has helped you stop smoking in the past I suggest you take it. Well butrin is generally associated with weight loss. The weight gain associated with smoking cessation is generally due to substituting food/sugar for cigarettes. 4. You do not have pneumonia. You have bronchitis and the sputum is growing Strep. I have given you a prescription for an Antibiotic called Augemntin. you will take this twice a day until gone. Pending Tests on Discharge: final sputum results Allergies/Adverse Reactions: Allergies Sulfa (Sulfonamide Antibiotics) Allergy (Verified 08/06/17 07:22) Unknown Medications to take at Discharge Ascorbic Acid [Vitamin C] 1 tab PO DAILY 11/20/16 Naproxen Sodium [Aleve] 220 mg PO BID 11/20/16 Albuterol IH (ProAir) [Proair Hfa] 1 puff INHALATION Q6H PRN PRN #1 inhaler 05/14 Amoxicillin/Potassium Clav [Augmentin 875-125 Tablet] 1 ea PO BID #14 tab Prednisone 40 mg PO DAILY #10 tab 08/07/17 Umeclidinium Brm/Vilanterol Tr [Anoro Ellipta 62.5-25 Mcg INH] 1 ea IH DAILY #1 disk.w.dev 08/07/17 The following prescriptions were given: Prednisone 40 mg PO DAILY #10 tab Umeclidinium Brm/Vilanterol Tr [Anoro Ellipta 62.5-25 Mcg INH] 1 ea IH DAILY #1 disk.w.dev Amoxicillin/Potassium Clav [Augmentin 875-125 Tablet] 1 ea PO BID #14 tab Primary Care Physician: Angela Brown MD [Primary Care Provider] - Please follow up with your Primary Care Physician in: 3-5 days Please Follow Up With: Pulmonary Disease [place] When: August 29 2017 with Shilpi ORTIZ Proposed Discharge Date: 08/07/17
--- NOTE | 2017-08-07 11:00 | CASEMGMT ---
Request for copay amount for Anoro which was e-scripted to [facility]. James checked and copay is $35.00 with no piror auth needed. Uday LEMONSN RN ACM
--- NOTE | 2017-08-07 11:01 | PCM.DC.SUM ---
Discharge Date and Diagnosis - Problem List Patient Problems: Active and Suspected Problems Acute bacterial bronchitis (Acute) Date of Admission: 08/06/17 Date of Discharge: 08/07/17 - Primary Discharge Diagnosis Active and Suspected Problems Acute bacterial bronchitis (Acute) - due to alpha strep Acute exacerbation suspected COPD due to acute Bronchitis - Secondary Discharge Diagnosis Chronic Problems History of alcohol abuse (Chronic) Suspected chronic obstructive pulmonary disease based on initial evaluation (Chronic) Nicotine abuse (Chronic) Hospital Course and Treatment Imaging Results: Clinical Impression(s) from Imaging Studies Chest X-Ray 08/06/17 07:39 IMPRESSION: Hyperinflation. Stable examination. Electronically Signed: Gualberto Barajas MD at 8:18 EDT Tel [phone], Service support , Dr. Yosi Elliott - pulmonology Operations: None Procedures: None Summary of Care Provided: The patient is a 62 year old M with a past medical history of COPD and tobacco dependence who presented to the emergency department at [facility] on 08/06/2017 complaining of shortness of breath. He had an occasional cough. He denied fever, chills, nausea, vomiting, sore throat, myalgias or arthralgias. He continues to smoke 1 pack of cigarettes per day. He is using an albuterol rescue inhaler 3 times daily. 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 He used to smoke 4 packs of cigarettes per day. He has never had pulmonary function testing or seen a motor vehicle parts interpreter. Vital signs at presentation to the emergency room are temperature 98.1, pulse rate 82, blood pressure 144/77, respiratory rate 28 and he was 98% saturated on room air. He was given a DuoNeb aerosol and the respiratory rate was then 18 and he was 95% on room air. Blood work showed a normal white blood cell count of 8.3 with a normal differential. D-dimer was less than 0.27. BUN was mildly increased at 19 with a creatinine of 0.76. Troponin was less than 0.02. Chest x-ray showed hyperinflation with no infiltrates. The ER physician recommended admission for acute exacerbation of COPD. He was admitted to hospital for observation with suspected mild exacerbation COPD. He was started on aerosolized bronchodilators and high-dose steroids. Consult was obtained with Dr. Elliott from Pulmonary medicine and he felt he was not having an exacerbation and diagnosed him with untreated Baseline COPD. He recommended a combination inhaler at [place] and follow up in the pulmonary office 2 weeks post discharge. Smoking cessation counselling was given by multiple medical scientific officer while in the hospital. He told me if he stopped smoking he would have to start drinking again....he still drinks but, not every day. He has stopped smoking with Wellbutrin in the past and has Wellbutrin at home but does not take it because he thinks it makes him gain weight. He was contradictory with the ELEMENTARY MATH TUTOR, Dr. Elliott and myself. In my opinion he is also passive aggressive and manipulative. When I entered his room initially he was watching TV and eating 100% of his lunch. He was not tachypneic and appeared in no distress. He had no conversational dyspnea and was speaking in full sentences. Lungs had diminished breath sounds and scattered end expiratory wheezing. When I informed him he was admitted for observation because he really could have been managed as an OP he began to increase the respiratory rate, had forced expirations and started to cough. When I left the room he was observed on camera and had no respiratory distress. The same thing happened at [place]. On the morning of [place] he was ambulating in the halls with a good pace and had no respiratory distress per nursing. A pulse ox was obtained on with ambulation and was 95%. The sputum culture is growing Alpha Hemolytic Strep. He was discharged with prescriptions for Anoro, Prednisone taper and Augmentin. He will follow up with Dr. Brown in 3-5 days and in the pulmonary clinic in 2 weeks. This note was generated with [employer] dictation software. It may contain incorrect words, spelling, and punctuation that were not noted in checking the note before signing. Discharge Activity: - - Avoid exposure to any strong smells such as bleach, cleaning products, strong colognes or perfumes, paint fumes and smoke of any kind. Avoid sudden exposure to cold air because this can cause bronchospasm. You may want to cover your mouth when you go outside in the winter. Avoid exposure to anyone who is sick with a cough or sore throat. Call your doctor if you observe: Fever of 101 or Higher, Chest pain, - - worsening shortness of breath, rash, diarrhea, more than 3 BM's a day, Home Medications: Medications to take at Discharge Ascorbic Acid [Vitamin C] 1 tab PO DAILY 11/20/16 Naproxen Sodium [Aleve] 220 mg PO BID 11/20/16 Albuterol IH (ProAir) [Proair Hfa] 1 puff INHALATION Q6H PRN PRN #1 inhaler 06/08/17 Amoxicillin/Potassium Clav [Augmentin 875-125 Tablet] 1 ea PO BID #14 tab 08/07/17 Prednisone 40 mg PO DAILY #10 tab 08/07/17 Umeclidinium Brm/Vilanterol Tr [Anoro Ellipta 62.5-25 Mcg INH] 1 ea IH DAILY #1 disk.w.dev 08/07/17 Following Prescrptions Were Given to Patient: Prednisone 40 mg PO DAILY #10 tab Umeclidinium Brm/Vilanterol Tr [Anoro Ellipta 62.5-25 Mcg INH] 1 ea IH DAILY #1 disk.w.dev Amoxicillin/Potassium Clav [Augmentin 875-125 Tablet] 1 ea PO BID #14 tab Primary Care Physician: Angela Brown MD [Primary Care Provider] - Please follow up with your Primary Care Physician in: 3-5 days Please Follow Up With: Pulmonary Disease [place] When: August 29 2017 with Shilpi ORTIZ Patient Instructions: Tips for Quitting Smoking (Cardiovascular), What is COPD?, Chronic Lung Disease: Preventing Lung Infections, Pulmonary Function Tests, Caring for Your Inhaler, Why Do You Smoke?, Planning to Quit Smoking, Getting Support for Quitting Smoking Disposition: Home Minutes spent on discharge:: 30 Patient Condition:: Good Meaningful Use Info Meaningful Use Diagnoses (Choose all that apply): None applicable Code Visit OBSV E&M: 25831 Observation care discharge
--- NOTE | 2017-08-07 11:04 | DS.PCM_ITS ---
Discharge Date and Diagnosis - Problem List Patient Problems: Active and Suspected Problems Acute bacterial bronchitis (Acute) Date of Admission: 08/06/17 Date of Discharge: 08/07/17 - Primary Discharge Diagnosis Active and Suspected Problems Acute bacterial bronchitis (Acute) - due to alpha strep Acute exacerbation suspected COPD due to acute Bronchitis - Secondary Discharge Diagnosis Chronic Problems History of alcohol abuse (Chronic) Suspected chronic obstructive pulmonary disease based on initial evaluation ( Chronic) Nicotine abuse (Chronic) Hospital Course and Treatment Imaging Results: Clinical Impression(s) from Imaging Studies Chest X-Ray 08/06/17 07:39 IMPRESSION: Hyperinflation. Stable examination. Electronically Signed: Gualberto Barajas MD at 8:18 EDT Tel [phone], Service support , Dr. Yosi Elliott - pulmonology Operations: None Procedures: None Summary of Care Provided: The patient is a 62 year old M with a past medical history of COPD and tobacco dependence who presented to the emergency department at [facility] on 08/06/2017 complaining of shortness of breath. He had an occasional cough. He denied fever, chills, nausea, vomiting, sore throat, myalgias or arthralgias. He continues to smoke 1 pack of cigarettes per day. He is using an albuterol rescue inhaler 3 times daily. 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 He used to smoke 4 packs of cigarettes per day. He has never had pulmonary function testing or seen a precision mechanical instrument maker. Vital signs at presentation to the emergency room are temperature 98.1, pulse rate 82, blood pressure 144/77, respiratory rate 28 and he was 98% saturated on room air. He was given a DuoNeb aerosol and the respiratory rate was then 18 and he was 95% on room air. Blood work showed a normal white blood cell count of 8.3 with a normal differential. D-dimer was less than 0.27. BUN was mildly increased at 19 with a creatinine of 0.76. Troponin was less than 0.02. Chest x-ray showed hyperinflation with no infiltrates. The ER physician recommended admission for acute exacerbation of COPD. He was admitted to hospital for observation with suspected mild exacerbation COPD. He was started on aerosolized bronchodilators and high-dose steroids. Consult was obtained with Dr. Elliott from Pulmonary medicine and he felt he was not having an exacerbation and diagnosed him with untreated Baseline COPD. He recommended a combination inhaler at OR and follow up in the pulmonary office 2 weeks post discharge. Smoking cessation counselling was given by multiple medical laboratory scientist while in the hospital. He told me if he stopped smoking he would have to start drinking again....he still drinks but, not every day. He has stopped smoking with Wellbutrin in the past and has Wellbutrin at home but does not take it because he thinks it makes him gain weight. He was contradictory with the IT GENERALIST, Dr. Elliott and myself. In my opinion he is also passive aggressive and manipulative. When I entered his room initially he was watching TV and eating 100% of his lunch. He was not tachypneic and appeared in no distress. He had no conversational dyspnea and was speaking in full sentences. Lungs had diminished breath sounds and scattered end expiratory wheezing. When I informed him he was admitted for observation because he really could have been managed as an OP he began to increase the respiratory rate, had forced expirations and started to cough. When I left the room he was observed on camera and had no respiratory distress. The same thing happened at OR. On the morning of OR he was ambulating in the halls with a good pace and had no respiratory distress per nursing. A pulse ox was obtained on with ambulation and was 95%. The sputum culture is growing Alpha Hemolytic Strep. He was discharged with prescriptions for Anoro, Prednisone taper and Augmentin. He will follow up with Dr. Brown in 3-5 days and in the pulmonary clinic in 2 weeks. This note was generated with [employer] dictation software. It may contain incorrect words, spelling, and punctuation that were not noted in checking the note before signing. Discharge Activity: - - Avoid exposure to any strong smells such as bleach, cleaning products, strong colognes or perfumes, paint fumes and smoke of any kind. Avoid sudden exposure to cold air because this can cause bronchospasm. You may want to cover your mouth when you go outside in the winter. Avoid exposure to anyone who is sick with a cough or sore throat. Call your doctor if you observe: Fever of 101 or Higher, Chest pain, - - worsening shortness of breath, rash, diarrhea, more than 3 BM's a day, Home Medications: Medications to take at Discharge Ascorbic Acid [Vitamin C] 1 tab PO DAILY 11/20/16 Naproxen Sodium [Aleve] 220 mg PO BID 11/20/16 Albuterol IH (ProAir) [Proair Hfa] 1 puff INHALATION Q6H PRN PRN #1 inhaler 05/14 Amoxicillin/Potassium Clav [Augmentin 875-125 Tablet] 1 ea PO BID #14 tab Prednisone 40 mg PO DAILY #10 tab 08/07/17 Umeclidinium Brm/Vilanterol Tr [Anoro Ellipta 62.5-25 Mcg INH] 1 ea IH DAILY #1 disk.w.dev 08/07/17 Following Prescrptions Were Given to Patient: Prednisone 40 mg PO DAILY #10 tab Umeclidinium Brm/Vilanterol Tr [Anoro Ellipta 62.5-25 Mcg INH] 1 ea IH DAILY #1 disk.w.dev Amoxicillin/Potassium Clav [Augmentin 875-125 Tablet] 1 ea PO BID #14 tab Primary Care Physician: Angela Brown MD [Primary Care Provider] - Please follow up with your Primary Care Physician in: 3-5 days Please Follow Up With: [facility] [place] When: August 29 2017 with Shilpi ORTIZ Patient Instructions: Tips for Quitting Smoking (Cardiovascular), What is COPD? , Chronic Lung Disease: Preventing Lung Infections, Pulmonary Function Tests, Caring for Your Inhaler, Why Do You Smoke?, Planning to Quit Smoking, Getting Support for Quitting Smoking Disposition: Home Minutes spent on discharge:: 30 Patient Condition:: Good Meaningful Use Info Meaningful Use Diagnoses (Choose all that apply): None applicable Code Visit OBSV E&M: 59180 Observation care discharge
== END 2017-08-07 13:08 | disposition home or self-care (01) ==
LOC: ED 08:14 → MS2 09:14
PROVIDERS: Admitting Provider Internal Medicine; Emergency Provider Emergency Medicine; Family Provider Family Medicine; PCP Family Medicine; Visit Provider Internal Medicine
DX: J20.2 Acute bronchitis due to streptococcus (principal); F17.210 Nicotine dependence, cigarettes, uncomplicated; F10.11 Alcohol abuse, in remission; R09.02 Hypoxemia
CPT/HCPCS: 36600; 71045; 80048; 82803; 84484; 85025; 85379; 87070; 87205; 93005; 94640; 94667; 94668; 96361; 96372; 96374; 96376; 99218; 99285; 99406; J7030; A4216; G0378

== ENCOUNTER → 2017-09-03 18:43 | Outpatient (CLI) | payer OTHER, SELFPAY ==
--- NOTE | 2017-09-03 16:45 | CT_ITS ---
STUDY: LOW DOSE CT LUNG CANCER SCREENING REASON FOR EXAM: Male, 62 years old. NICOTINE ABUSE,SMOKER X50 YRS,1/2 PPD,200 ILS RADIATION DOSAGE (If Supplied By Facility): CTDIvol = ( 3.02 ) mGy, DLP = ( 123.80 ) mGycm TECHNIQUE: No contrast was administered. Low dose technique was utilized (average mAS-38 and kVp 120). 1.25 mm axial source images with a slice interval of 1.25-mm were reconstructed in lung windows. 2.5 mm axial source images with a slice interval of 2.5-mm were reconstructed in lung windows. 5.0 mm axial source images with a slice interval of 5.0-mm were reconstructed in soft tissue windows. Nodule measured using lung windows on PACS and/or independent workstation with automated measurement of minimum and maximum diameter. Nodule measurement reported as average diameter rounded to the nearest whole number. Growth is defined as an increase ins size of greater than 1.5 mm. COMPARISON: None. NODULES: Diffuse ill-defined centrilobular groundglass nodules are seen in both lungs suggesting bronchiolitis. Hyperinflation is noted in both lungs consistent with COPD There is no demonstrated pleural abnormality. Normal heart and pericardium. Normal mediastinum. Normal hilar regions. Normal unenhanced pulmonary arteries. Normal aorta arch and descending thoracic aorta. There are multi-level degenerative changes of the thoracic spine. There is a subacute compression fracture of L2. There is no demonstrated abnormality of the visualized upper abdomen. CT/Low Dose CT Lung Screening IMPRESSION: Lung-RADS category 2. No evidence of lung neoplasm. Incidental note is made of a compression fracture of L2 of uncertain etiology. Recommendation: MRI of the lumbar spine for better characterization of compression fracture of L2 and to exclude metastatic lesion. Routine screening chest CT scan in one year. IMPORTANT NOTES FOR USE: ACR Lung-RADS Version 1.0 Assessment Categories Release Date: September 22, 2013 Category: Coded 0-4 bases on nodule(s) with highest degree of suspicion. Negative screen is defined as categories 1 and 2; a positive screen is defined as categories 3 and 4. Category 3 and 4A nodules that are unchanged on interval CT should be coded as category 2, and individuals returned to screening in 12 months. Category 4X: Category 3 or 4 nodules with additional imaging findings that increase the suspicion of lung cancer, such as spiculation, GGN that doubles in size in 1 year, enlarged lymph notes, etc. Category Modifiers: S (significant finding unrelated to lung cancer) and C (prior history of treated lung cancer) may be added to the 0-4 Lung-RADS Electronically Signed: Alex Ignacio MD at 3:22 EDT Tel , Service support ,
== END ==
PROVIDERS: Family Provider Family Medicine; PCP Family Medicine; Visit Provider Nurse Practitioner Acute Care
DX: Z12.2 Encounter for screening for malignant neoplasm of respiratory organs (principal); Z87.891 Personal history of nicotine dependence
CPT/HCPCS: G0297

== ENCOUNTER → 2017-09-18 06:35 | Outpatient (CLI) | payer OTHER, SELFPAY ==
--- NOTE | 2017-09-18 13:13 | PFT ---
INTRODUCTION: The patient is a 62-year-old male currently under the care of Tere Painter NP that presents for pulmonary function testing secondary to a diagnosis of COPD. Respiratory therapy reports good patient effort and reports no other concerns. Bronchodilators were used during testing. INTERPRETATION: Forced expiration spirometry demonstrates the presence of a mild large airways obstructive ventilatory defect. There was no significant response to aerosolized bronchodilators, based upon strict ATS criteria. Spirograms are of fair quality and do not plateau indicating slow emptying of the lungs. The respiratory flow volume loop reveals decreased expiratory flow rates at all lung volumes consistent with airways obstruction. Body plethysmography was performed and reveals an elevated TLC and RV, indicative of underlying hyperinflation and air-trapping. Diffusing capacity by single breath CO is preserved at 84% of predicted. IMPRESSION: These pulmonary function studies demonstrate the presence of an irreversible mild large airways obstructive ventilatory impairment with associated hyperinflation and air-trapping. There are no previous pulmonary function studies available for comparison.
== END ==
PROVIDERS: Family Provider Family Medicine; PCP Family Medicine; Visit Provider Nurse Practitioner Acute Care
DX: J44.1 Chronic obstructive pulmonary disease with (acute) exacerbation (principal)
CPT/HCPCS: 94060; 94726; 94729

== ENCOUNTER 2018-03-06 13:13 | Emergency (ER) | payer OTHER, SELFPAY ==
[2018-03-06 13:14] VITALS: BP 135/74; PULSE 89; RESP 14; TEMP 37.1; O2SAT 98; BMI 29.7
[2018-03-06 14:12] VITALS: BP 129/73; PULSE 78; RESP 16; O2SAT 97
--- NOTE | 2018-03-06 14:58 | ED.VISSUMM ---
- ER Visit Summary Date of Service: 03/06/18 Chief Complaint: Acute on chronic right shoulder pain. History of Present Illness: The patient is a 62 M [id number]. Has had 2 prior surgeries to his right shoulder age to repair a torn rotator cuff. He states that for the last month he has had pain in his right shoulder. Worse with movement. He denies any swelling. He denies is any redness or warmth. He said his multiple times before with his rotator cuff and shoulder pain. Physical Examination: Well-appearing middle-age male. Vital signs are stable. He is afebrile. No distress. H EENT exam unremarkable. Neck nontender. Lungs clear to auscultation bilaterally. Heart regular rhythm no murmur. Abdomen soft nontender. He is moving all 4 extremities. They are neurovascularly intact. With range of motion of his right shoulder he has severe crepitance to the shoulder. There is no redness or warmth. There is no swelling. There is no obvious effusion. He is able to do flexion extension of the right shoulder. He is able to do AB and adduction of the right shoulder. His right elbow, forearm, wrist and hand are nontender neurovascular intact. 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 Normal touch sensation. Strong radial pulse. Test Results: None Emergency Department Course and Treatment: Patient was offered but deferred a right shoulder joint injection. He states he only usually gets about 1 days early with those. He has had them several times before. Treatment Plan: Percocet 20 no refill. Continue his Aleve. Follow-up with his orthopedic shoulder specialist. Disposition: Discharge Impression: Acute on chronic right shoulder pain with a history of prior rotator cuff tears. This note was generated with [employer] dictation software. It may contain incorrect words, spelling, and punctuation that were not noted in review of the chart prior to signing ED Disposition - Plan for ED Patient: Chief Complaint: Upper Extremity Injury Referrals: Marlin Harrington NP-C [Primary Care Provider] -
--- NOTE | 2018-03-06 15:01 | ED.DCSUM_ITS ---
- ER Visit Summary Date of Service: 03/06/18 Chief Complaint: Acute on chronic right shoulder pain. History of Present Illness: The patient is a 62 M [id number]. Has had 2 prior surgeries to his right shoulder age to repair a torn rotator cuff. He states that for the last month he has had pain in his right shoulder. Worse with movement. He denies any swelling. He denies is any redness or warmth. He said his multiple times before with his rotator cuff and shoulder pain. Physical Examination: Well-appearing middle-age male. Vital signs are stable. He is afebrile. No distress. H EENT exam unremarkable. Neck nontender. Lungs clear to auscultation bilaterally. Heart regular rhythm no murmur. Abdomen soft nontender. He is moving all 4 extremities. They are neurovascularly intact. With range of motion of his right shoulder he has severe crepitance to the shoulder. There is no redness or warmth. There is no swelling. There is no obvious effusion. He is able to do flexion extension of the right shoulder. He is able to do AB and adduction of the right shoulder. His right elbow, forearm, wrist and hand are nontender neurovascular intact. 5 out of 5 mud worker strength in his right hand. Normal touch sensation. Strong radial pulse. Test Results: None Emergency Department Course and Treatment: Patient was offered but deferred a right shoulder joint injection. He states he only usually gets about 1 days early with those. He has had them several times before. Treatment Plan: Percocet 20 no refill. Continue his Aleve. Follow-up with his orthopedic shoulder specialist. Disposition: Discharge Impression: Acute on chronic right shoulder pain with a history of prior rotator cuff tears. This note was generated with [employer] dictation software. It may contain incorrect words, spelling, and punctuation that were not noted in review of the chart prior to signing ED Disposition - Plan for ED Patient: Chief Complaint: Upper Extremity Injury Referrals: Marlin Harrington NP-C [Primary Care Provider] -
--- NOTE | 2018-03-06 15:01 | ED.DEP ---
ED Disposition - Plan for ED Patient: Disposition: Home or Assisted Living Chief Complaint: Upper Extremity Injury Instructions: ED Tendinitis Rotator Cuff Prescriptions: Oxycodone HCl/Acetaminophen [Percocet 10-325 mg Tablet] 1 tab PO Q6H PRN PRN #20 tab PRN Reason: Pain Referrals: Marlin Harrington NP-C [Primary Care Provider] -
[2018-03-06] MEDS: oxyCODONE 5 MG Tablet 10 MG PO (15:18)
[2018-03-06 15:19] VITALS: BP 117/70; PULSE 81; RESP 16; O2SAT 97
== END 2018-03-06 15:26 | disposition home or self-care (01) ==
PROVIDERS: Emergency Provider Emergency Medicine; Family Provider Nurse Practitioner Primary Care; PCP Nurse Practitioner Primary Care
DX: M25.511 Pain in right shoulder (principal); G89.29 Other chronic pain; J44.9 Chronic obstructive pulmonary disease, unspecified; Z72.0 Tobacco use
CPT/HCPCS: 99282

== ENCOUNTER 2018-08-06 19:54 | Emergency (ER) | payer OTHER, SELFPAY ==
[2018-08-06 19:55] VITALS: BP 152/78; PULSE 89; RESP 18; TEMP 36.8; O2SAT 97; BMI 30.8
--- NOTE | 2018-08-06 22:03 | ED.VISSUMM ---
- ER Visit Summary Date of Service: 08/06/18 Chief Complaint: Acute on chronic right shoulder pain History of Present Illness: The patient is a 63 M history of prior to rotator cuff surgeries and pending a third. Patient denies any new trauma. Or injury. Denies any fever, redness or swelling. States that he is just had exacerbation of his right shoulder pain. He has a pending upcoming surgery with an orthopedic physician from the [facility]. He is just requesting something for pain. Physical Examination: Well-appearing male. Vital signs are stable afebrile. No acute distress. H EENT exam unremarkable. Neck nontender. No lymphadenopathy. Lungs there to auscultation bilaterally. Heart regular rhythm no murmur. Abdomen soft nontender. Extremities moves all 4. His right shoulder is not swollen. Is not red or warm. He has limited ADD duction and cannot lift his right arm above his shoulder. Consistent with a rotator cuff tear. Distally the right elbow, forearm, wrist and hand are nontender neurovascular intact. 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 Normal sensation. Strong radial pulse. Test Results: None Emergency Department Course and Treatment: Patient written for Percocet for pain. Follow-up with his orthopedic physician. Treatment Plan: Percocet and Motrin for pain. Ice to the area. Disposition: Discharge Impression: Acute on chronic shoulder pain secondary to known rotator cuff tear This note was generated with [employer] dictation software. It may contain incorrect words, spelling, and punctuation that were not noted in review of the chart prior to signing ED Disposition - Plan for ED Patient: Referrals: Marlin Harrington NP-C [Primary Care Provider] -
--- NOTE | 2018-08-06 22:08 | DCINST.ED_ITS ---
ED Disposition - Plan for ED Patient: Disposition: Home or Assisted Living Instructions: ED Torn Rotator Cuff Prescriptions: Oxycodone HCl/Acetaminophen [Percocet 10-325 mg Tablet] 1 tab PO Q6H PRN PRN #20 tab PRN Reason: Pain Referrals: Marlin Harrington, MACHINE STRAW HAT PRESSER-C [Primary Care Provider] - As Needed Additional Instructions: Ice to right shoulder. Motrin and Percocet for pain. Call and follow-up with orthopedic surgeon as soon as possible.
== END 2018-08-06 22:29 | disposition home or self-care (01) ==
PROVIDERS: Emergency Provider Emergency Medicine; Family Provider Nurse Practitioner Primary Care; PCP Nurse Practitioner Primary Care
DX: M75.101 Unspecified rotator cuff tear or rupture of right shoulder, not specified as traumatic (principal); M25.511 Pain in right shoulder; G89.29 Other chronic pain; Z72.0 Tobacco use
CPT/HCPCS: 99282

== ENCOUNTER 2020-12-16 04:15 | Emergency (ER) | payer MEDICAID, SELFPAY ==
[2020-12-16 04:17] VITALS: BP 150/105; PULSE 96; RESP 28; TEMP 36.4; O2SAT 97; BMI 31.7
[2020-12-16 04:20] VITALS: O2SAT 97
--- NOTE | 2020-12-16 04:28 | RAD_ITS ---
HISTORY: dyspnea EXAMINATION/TECHNIQUE: XR Chest 1 View COMPARISON: AP chest x-ray from 08/06/17 FINDINGS: LINES/DEVICES: media monitor leads. LUNGS: Stable hyperexpanded lungs. No focal airspace consolidation. No pulmonary edema. No pleural effusion. No pneumothorax. MEDIASTINUM AND CARDIOVASCULAR STRUCTURES: Cardiac silhouette not enlarged. Central airways and mediastinal contour are unremarkable. BONES AND SOFT TISSUES: Mild skeletal degenerative changes. RAD/Chest 1 View (Portable) IMPRESSION: COPD at 0619 Reported and signed by: Galileo Blanchard MD Electronically Signed: Galileo Blanchard MD at 6:18 EDT Tel , Service support ,
--- NOTE | 2020-12-16 04:29 | ED.VIS.DYS ---
HPI History of Present Illness Chief Complaint: Shortness of Breath Informant: patient and spouse/S.O. Narrative Narrative: 65-year-old male presents the emergency room for the evaluation of dyspnea. Patient begins his narrative by stating that he hates doctors and hospitals. He does not wish to have an IV. He does not want to be here. His states that he woke her up around 2:00 stating that he was short of breath. She noticed that he had blood pressures readings around 150/100 and his pulse oximetry was in the 80s. Patient notes a slight cough with the occasional phlegm production. He has a history of COPD. He is an active smoker. [facility] Medical History (Updated 12/16/20 @ 06:[address] Jimy Peguero DO) Acute bacterial bronchitis COPD exacerbation History of alcohol abuse Nicotine abuse Suspected chronic obstructive pulmonary disease based on initial evaluation Home Medications albuterol sulfate [Ventolin HFA] 2 puff INHALATION Q4H PRN PRN #1 inhaler 12/16/20 [Rx Last Taken Unknown] doxycycline monohydrate 100 mg PO BID #20 capsule 12/16/20 [Rx Last Taken Unknown] prednisone 60 mg PO DAILY #15 tablet 12/16/20 [Rx Last Taken Unknown] Allergy/AdvReac Type Severity Reaction Status Date / Time Sulfa (Sulfonamide Allergy Unknown Verified 12/16/20 04:16 Antibiotics) Surgical History H/O adenoidectomy H/O right knee surgery History of tonsillectomy left groin surgery right shoulder surgery Social History household members: spouse housing: apartment pets and animals: Yes pets and animals: cat(s) Smoking Status: Current every day smoker tobacco type: cigarettes second hand exposure: No alcohol intake: never substance use type: does not use ROS ROS ED Constitutional Constitutional ED: Denies chills or weight loss Eyes Eyes: Denies change in vision or diplopia ENT ENT ED: Denies ear pain, rhinorrhea or sore throat Cardiovascular Cardiovascular: Denies chest pain, orthopnea, palpitations or racing heartbeat Respiratory/Chest Respiratory/Chest: Reports cough, dyspnea, dyspnea on exertion and sputum; Denies orthopnea Gastrointestinal Gastrointestinal: Denies abdominal pain, diarrhea, nausea or vomiting Genitourinary Genitourinary ED: Denies dysuria, hematuria or urinary frequency Musculoskeletal Musculoskeletal: Denies arthralgias or myalgias Integumentary Denies abscess or rash Neurologic Neurologic: Denies headache(s) or weakness Psychiatric Psychiatric: Denies anxiety, depression, suicidal ideation or suicidal thoughts Endocrine Endocrinology: Denies polydipsia, polyphagia or polyuria Allergic/Immunologic Allergic/Immunologic ED: Denies mouth swelling, tongue swelling or urticaria EXAM Physical Exam Const Vital Signs: 12/16/20 04:17 12/16/20 04:20 12/16/20 04:35 Temperature 97.5 F L Temperature Source Temporal Pulse Rate 96 87 Respiratory Rate 28 H 26 H Respiratory Effort Short of Breath Short of Breath Respiratory Depth Shallow Shallow Respiratory Pattern Tachypnea Tachypnea Blood Pressure 150/105 H Blood Pressure Mean 120 Pulse Ox 97 96 Oxygen Delivery Method Room Air Room Air Room Air 12/16/20 05:00 12/16/20 05:11 Temperature 97.5 F L Temperature Source Temporal Pulse Rate 83 100 Respiratory Rate 22 H 20 H Respiratory Effort Respiratory Depth Respiratory Pattern Blood Pressure 125/74 H 137/72 H Blood Pressure Mean 91 93 Pulse Ox 99 96 Oxygen Delivery Method Room Air Room Air Positive well nourished and well developed General Appearance ED: well developed HEENT Reports normocephalic, head/scalp atraumatic and moist mucous membranes Eyes PERRL and EOMs intact bilaterally Neck no lymphadenopathy, supple and no JVD Resp Auscultation: rhonchi and wheezes Cardio regular rate, regular rhythm and no murmurs GI normal to inspection, nondistended, normoactive bowel sounds and non-tender Palpation: soft Back/Spine no CVA tenderness and normal ROM Extremity normal to inspection General Extremety ED: Negative for edema General Extremity: Negative for edema Neuro oriented x3 and CN's II-XII intact bilaterally Sensorium / Orientation: alert Motor Exam: strength 5/5 throughout Psych mental status grossly normal Mood & Affect: Negative for depressed or tearful Skin no rashes or lesions noted and no wounds MDM MDM MDM Narrative Medical decision making narrative: White count is normal at 9.2. Troponin 4.2. Chest x-ray shows increased markings in the left lower lobe. Patient received Solu-Medrol and breathing treatments. Repeat examination ask him how he is feeling he states I do not know. I cannot get him to put down his phone and talk to me. He reluctantly leans forward so I can auscultate his lungs of which still sound significantly tight with expiratory wheezes. Patient does not wish to stay in the hospital. He does not really wish to have a conversation at this time. Patient will be discharged home with albuterol MDI, prednisone and doxycycline. Lab Data Attestation: I reviewed the patient's lab results. Labs: Laboratory Results - last 24 hr 12/16/20 12/16/20 04:30 04:30 WBC 9.2 RBC 5.42 Hgb 16.9 H Hct 49.5 MCV 91.3 MCH 31.2 MCHC 34.1 RDW Std Deviation 44.8 H RDW Coeff of Bud 13.2 Plt Count 204 MPV 9.7 Immature Gran % (Auto) 0.300 Neut % (Auto) 59.1 Lymph % (Auto) 29.1 Amelia % (Auto) 7.7 Eos % (Auto) 3.0 Baso % (Auto) 0.8 Absolute Neuts (auto) 5.5 Absolute Lymphs (auto) 2.69 Nucleated RBC % 0 Sodium 140 Potassium 4.5 Chloride 107 Carbon Dioxide 28.0 Anion Gap 5 BUN 21 H Creatinine 0.93 Estim Creat Clear Calc 81.30 Est GFR (MDRD) Af Amer 105 Est GFR (MDRD) Non-Af 87 BUN/Creatinine Ratio 22.5 H Glucose 116 H Calcium 8.6 Troponin I High Sens 4.2 Discharge Plan Triage Chief Complaint: Shortness of Breath ED Provider: Jimy Peguero Dx/Rx/DC Orders Clinical Impression: COPD exacerbation Instructions: ED COPD Flare Prescriptions: New prednisone 20 MG tablet 60 mg PO DAILY Qty: 15 RF: 0 doxycycline monohydrate 100 MG capsule 100 mg PO BID Qty: 20 RF: 0 albuterol sulfate [Ventolin HFA] 1 INHALER inhaler 2 puff inhalation Q4H PRN PRN (Reason: Wheezing) Qty: 1 RF: 0 Primary Care Provider: Pedro Luis Hinojosa Referrals: Pedro Luis Hinojosa MD [Primary Care Provider] - As Needed Disposition Disposition: Home, Self Care
[2020-12-16 04:35] VITALS: PULSE 87; RESP 22; RESP 26; O2SAT 96
[2020-12-16] MEDS: Ipratropium/Albuterol Sulfate 3 ML AMPUL.NEB INHALATION (04:35)
[2020-12-16] MEDS: Albuterol 2.5 MG/3 ML VIAL.NEB. INHALATION ×3 (04:46→04:47)
[2020-12-16] MEDS: MethylPREDNISolone 125 MG/2 ML Vial IV (04:59)
[2020-12-16 05:00] VITALS: BP 125/74; PULSE 83; RESP 22; TEMP 36.4; O2SAT 99
[2020-12-16 05:02] LABS: Absolute Lymphocyte Count 2.69 X10^3/uL (0.83-4.51); Absolute Neutrophil Count 5.5 X10^3/uL (2.0-7.7); Basophil# 0.07 X10^3/uL; Basophil% 0.8 % (0-1); Eosinophil# 0.28 X10^3/uL; Hematocrit 49.5 % (40-54); Hemoglobin 16.9 g/dL (13.0-16.5); Lymphocyte # 2.69 X10^3/ul (0.83-4.51); Lymphocyte % 29.1 % (19-41); Mean Corp Hgb Conc 34.1 g/dL (32-36); Mean Corpuscular Hgb 31.2 pg (27.0-32.0); Mean Corpuscular Volume 91.3 fL (80-94); Mean Platelet Vol. 9.7 fl (6.2-12.0); Monocyte# 0.71 X10^3/uL; Monocyte% 7.7 % (0-10); NRBC Flagged by Analyzer 0 % (0-5); Neutrophil # 5.45 X10^3/uL (2.7-7.7); Neutrophil % 59.1 % (47-70); Platelet Count 204 K/mm3 (150-450); RBC Distribution Width CV 13.2 % (11.6-14.6); RBC Distribution Width SD 44.8 fl (35.1-43.9); Red Blood Count 5.42 M/mm3 (4.6-6.2); White Blood Count 9.2 K/mm3 (4.4-11.0)
--- NOTE | 2020-12-16 05:10 | ED.RN ---
PT IS RUDE TO STAFF AND HIS . PT REFUSING EVERY TREATMENT BUT GETS ALL RECOMMENDED TREATMENT WHEN HIS TELLS HIM HE HAS TO.
[2020-12-16 05:11] VITALS: BP 137/72; PULSE 100; RESP 20; O2SAT 96
--- NOTE | 2020-12-16 05:15 | CPS ---
x3 Albuterol given to pt. in ER as well
[2020-12-16 05:20] LABS: Anion Gap 5 (5-15); BUN 21 mg/dL (7-18); BUN/Creat Ratio 22.5 RATIO (10-20); Calcium,Total 8.6 mg/dL (8.5-10.1); Chloride 107 mmol/L (98-107); Creatinine, Serum 0.93 mg/dL (0.70-1.30); EST Glomerular Filtration Rate 87 mL/min (>60); Est Glom Filt Rate - Afr Amer 105 mL/min (>60); Glucose 116 mg/dL (74-106); Potassium 4.5 mmol/L (3.5-5.1); Sodium Level 140 mmol/L (136-145); Troponin-I HS 4.2 pg/mL (3.0-78.5)
[2020-12-16 06:20] VITALS: BP 146/61; PULSE 87; RESP 18; O2SAT 93
== END 2020-12-16 06:20 | disposition home or self-care (01) ==
PROVIDERS: Emergency Provider Emergency Medicine; PCP Family Medicine
DX: J44.1 Chronic obstructive pulmonary disease with (acute) exacerbation (principal); F17.210 Nicotine dependence, cigarettes, uncomplicated; Z79.899 Other long term (current) drug therapy; Z79.52 Long term (current) use of systemic steroids
CPT/HCPCS: 71045; 80048; 84484; 85025; 94640; 96374; 99251; 99284; A4216; G0463

== ENCOUNTER → 2021-03-14 14:44 | Outpatient (CLI) | payer MEDICAID, SELFPAY ==
--- NOTE | 2021-03-14 14:46 | CT_ITS ---
STUDY: RIGHT SHOULDER CT SCAN REASON FOR EXAM: Male, 65 years old. RT SHOULDER OSTEOARTHRITIS RADIATION DOSAGE (If Supplied By Facility): CTDIvol = ( 29.35 ) mGy, DLP = ( 782.18 ) mGycm. Individualized dose optimization techniques were used for this CT.? TECHNIQUE: Axial multidetector CT scan of the right shoulder. Coronal and sagittal reformatted images. COMPARISON: None. FINDINGS: No acute fracture, dislocation or bone destruction. Advanced glenohumeral joint arthrosis. Moderate/severe acromioclavicular joint arthrosis with anterior interval narrowing/impingement. Suspected supraspinatus/infraspinatus tendon tears with muscle atrophy (sagittal image 55 series 602). Suspected superior labral tear with labral calcification (coronal image 50 series 601). 2 mm and 3 mm glenohumeral joint loose bodies/calcifications with small joint effusion and mild swelling. Paraspinal muscle lipoma (axial image 67 series 2) measuring 4.5 cm x 2.5 cm. Ribs intact. COPD/coarse lung markings. No acute cardiopulmonary process. CT/Extremity Upper without Contra IMPRESSION: Advanced glenohumeral joint arthrosis Moderate/severe AC joint arthrosis with anterior impingement Suspected supraspinatus/infraspinatus tendon tears with muscle atrophy Suspected labral tear with punctate labral calcification Paraspinal intramuscular lipoma Electronically Signed: Raul Clay DO at 12:07 EDT Tel , Service support ,
== END ==
PROVIDERS: PCP Family Medicine; Referring Provider Specialist; Visit Provider Specialist
DX: M19.211 Secondary osteoarthritis, right shoulder (principal)
CPT/HCPCS: 73200

== ENCOUNTER → 2021-05-06 09:45 | Outpatient (CLI) | payer MEDICAID, SELFPAY ==
--- NOTE | 2021-05-06 10:03 | MRI_ITS ---
EXAM: MR NECK WITHOUT AND WITH INTRAVENOUS CONTRAST : 1955 CLINICAL INDICATION: ABNORMAL IMAGING, MUSCLE LIPOMA TECHNIQUE: Multiplanar and multisequence MR images of the neck without and with intravenous contrast. This report was created using [employer] [facility] report [employer] technology. CONTRAST: IV 19 cc dotarem COMPARISON: None. FINDINGS: NASOPHARYNX: Unremarkable. OROPHARYNX: Unremarkable. No significant tonsillar enlargement. No peritonsillar abscess. HYPOPHARYNX: Unremarkable. LARYNX: Unremarkable. Normal epiglottis. RETROPHARYNGEAL SPACE: Unremarkable. SUBMANDIBULAR/PAROTID GLANDS: Unremarkable. Glands are normal in size. THYROID: Unremarkable. No enlarged or calcified nodules. Soft tissues: 5.1 x 3.1 x 1.9 cm fat-containing lesion involves the right levator scapulae muscle consistent with a lipoma. No abnormal contrast enhancement. BONES/JOINTS: Moderate diffuse spondylosis of the cervical spine. VASCULATURE: Unremarkable. LYMPH NODES: Unremarkable. No enlarged lymph nodes. MRI/Orbit Face Neck W/WO Contrast IMPRESSION: Benign-appearing lipoma involving the right levator scapulae muscle. at 1533 Reported and signed by: Kaiden Silva MD Electronically Signed: Kaiden Silva MD at 15:32 EST Tel , Service support ,
--- NOTE | 2021-05-06 10:40 | RAD_ITS ---
STUDY: X-RAY - ORBITS REASON FOR EXAM: Male, 65 years old. PRE-MRI CLEARANCE TECHNIQUE: 2 view(s) of the orbits were obtained. COMPARISON: None. FINDINGS: Normal bilateral orbits without a metallic orbital foreign body. Normal visualized facial bones. Normal paranasal sinuses. The soft tissue structures are unremarkable. RAD/Orbits for Foreign Body IMPRESSION: No demonstrated metallic orbital foreign body. The patient is cleared for an MRI examination. Electronically Signed: Gualberto Barajas MD at 10:58 EST , Service support ,
[2021-05-06 10:50] LABS: CREATININE FINGERSTICK 0.9 mg/dL (0.70-1.30); EGFR FINGERSTICK > 60.0000 mL/min (>60)
== END ==
PROVIDERS: PCP Family Medicine; Referring Provider Specialist; Visit Provider Specialist
DX: R93.89 Abnormal findings on diagnostic imaging of other specified body structures (principal)
CPT/HCPCS: 70030; 70543; A9575